=== PATIENT | male | born 1985 | race Caucasian/White ===

== ENCOUNTER 2022-01-11 08:26 | Emergency (ER) | payer OTHER ==
[~2022-01-11 08:26] MED LIST: IBUPROFEN600 MG PO; KEFLEX CAP 500500 MG PO; NAPROSYN500 MG PO
== END 2022-01-11 09:38 | disposition home or self-care (01) ==
LOC: ER1 08:26
DX: S62.336A Displaced fracture of neck of fifth metacarpal bone, right hand, initial encounter for closed fracture (principal); E11.9 Type 2 diabetes mellitus without complications; I10 Essential (primary) hypertension; W25.XXXA Contact with sharp glass, initial encounter
CPT/HCPCS: 29125; 73130; 99283